=== PATIENT | female | born 1960 | race Caucasian/White ===

== ENCOUNTER → 2016-12-27 | Emergency (ER) | payer MEDICAID ==
[~2016-12-27] VITALS: Ht 167.6 cm; Wt 170.0 kg
[~2016-12-27] MED LIST: ASPI1TAB30 PO; CIPR500T4 PO; CIPROFLOXACIN 400MG/D5W 200 ML IVPB ONE; DICLOFENAC SODIUM 37.5 MG/ML VIAL IV STA; HYDR-906 PO; HYDROmorphONE 1 MG/ML SYG IV STA; IBUP800T25 PO; ONDANSETRON 4 MG INJ IV STA; SOD CHLORIDE 0.9% 1,000 ML IV STA; morphine 4 MG/ML VIAL IV STA
[2016-12-27 12:58] VITALS: Ht 167.6 cm; Wt 170.0 kg
[2016-12-27 15:01] LABS: ADD SCAN DIFF NO
[2016-12-27 15:13] LABS: INR 0.95; PROTIME 12.7 Sec (12.2-14.2)
[2016-12-27 15:15] LABS: BASOPHIL # 0.1 10^3/ul (0.0-0.1); BASOPHILS % 0.4 % (0.0-2.0); EOSINOPHILS % 0.3 % (0.0-7.0); HEMATOCRIT 42.8 % (37.0-47.0); HEMOGLOBIN 13.7 g/dl (12.0-16.0); LYMPHOCYTES # 1.7 10^3/ul (0.8-2.9); LYMPHOCYTES % 13.7 % (15.0-51.0); MEAN CORPUSCULAR HEMOGLOBIN 28.9 pg (29.0-33.0); MEAN CORPUSCULAR VOLUME 90.3 fl (82.0-101.0); MEAN PLATELET VOLUME 9.8 fl (7.4-10.4); MONOCYTE # 0.7 10^3/ul (0.3-0.9); MONOCYTES % 5.6 % (0.0-11.0); NEUTROPHIL # 9.7 10^3/ul (1.6-7.5); NEUTROPHILS % 79.8 % (39.0-77.0); PLATELET COUNT 291 10^3/UL (140-415); RED BLOOD COUNT 4.74 10^6/ul (4.20-5.40); RED CELL DISTRIBUTION WIDTH 12.6 % (11.5-14.5); WHITE BLOOD COUNT 12.1 10^3/ul (4.8-10.8)
[2016-12-27 15:55] LABS: ALBUMIN 4.1 g/dl (3.3-4.9); CHLORIDE 105 mmol/L (97-110); POTASSIUM 4.1 mmol/L (3.5-5.1); SODIUM 142 mmol/L (135-144)
[2016-12-27 15:58] LABS: ALANINE AMINOTRANSFERASE 24 IU/L (13-69); ALBUMIN/GLOBULIN RATIO 1.24; ALKALINE PHOSPHATASE 84 IU/L (42-121); ANION GAP 17 (8-16); ASPARTATE AMINO TRANSFERASE 19 IU/L (15-46); BILIRUBIN,INDIRECT 0.1 mg/dl (0-1.1); BILIRUBIN,TOTAL 0.1 mg/dl (0.2-1.3); BLOOD UREA NITROGEN 18 mg/dl (7-20); CARBON DIOXIDE 24 mmol/L (21-31); CREATININE 0.66 mg/dl (0.44-1.00); GLUCOSE 111 mg/dl (70-220); TOTAL PROTEIN 7.4 g/dl (6.1-8.1)
[2016-12-27 15:59] LABS: CALCIUM 9.4 mg/dl (8.4-10.2)
--- NOTE | 2016-12-27 16:31 | RADRPT ---
PROCEDURE: CT Abdomen and Pelvis without contrast. CLINICAL INDICATION: Right flank pain TECHNIQUE: CT scan of the abdomen and pelvis without contrast was performed on a multidetector hig h-resolution CT scanner. The patient was scanned without intravenous contrast. Coronal and sagittal reformatted images were obtained from the axial source images. Images were reviewed on a high-resol [employer] PACS workstation. The total exam CTDI equals 14.19 mGy and the total exam DLP equals 841.43 mG y-cm. One or more of the following dose reduction techniques were used: Automated exposure control. Adjustment of the mA and/or kV according to patient size. Use of iterative reconstruction technique. COMPARISON: None FINDINGS: CT abdomen: The lung bases are remarkable for posterior dependent atelectasis. The heart size is normal, withou t pericardial thickening or effusion. The liver is normal in size and density without focal mass or intrahepatic biliary dilatation. The spleen is normal in size and homogeneous in density. The sto mach is partially collapsed, but is grossly unremarkable. The pancreas as visualized is normal. Th e gallbladder is remarkable for multiple sub centimeter calcified gallstones. There is no evidence f or biliary dilatation. The adrenal glands are symmetric and normal. There is mild right hydroureteronephrosis related to 5 mm obstructing stone in the ureterovesical ju nction. There are multiple additional small nonobstructing stones measures up to 5 mm in bilateral k idneys left greater than right. There is mild cortical atrophy and parenchymal distortion in the lo wer pole left kidney. There is no left hydronephrosis. The aorta is of normal caliber. There is no retroperitoneal lymphadenopathy. The arminda hepatis samantha on is clear. The bowel and mesentery, as visualized, are equally unremarkable. There is a small hia franklin hernia. There is atrophy of the left lateral and posterior abdominal wall musculature. CT pelvis: The small bowel loops situated within the pelvis are unremarkable. The pelvic organs are normal. T he pelvic sidewalls and inguinal regions are clear. The sigmoid colon and rectum are unremarkable. No mass, lymphadenopathy, or free fluid is seen. No acute inflammation is seen. No osteolytic or o steoblastic lesion is detected. IMPRESSION: 1. Mild right hydroureteronephrosis related to 5 mm obstructing stone in the ureterovesical junctio n. Additional small nonobstructing stones in bilateral kidneys. Mild cortical atrophy and parenchy mal distortion involving the lower pole of the left kidney. Atrophy of the left lateral and posterio r abdominal wall musculature. Correlate with surgical history. 2. Cholelithiasis without evidence of acute cholecystitis. 3. Small hiatal hernia. RPTAT: BB .Bri Thakkar MD, Date Time Electronically viewed and signed by .Bri Thakkar MD, on 12/27/2016 16:30 .O/
[2016-12-27 16:37] LABS: AMYLASE 109 U/L (11-123)
[2016-12-27 17:11] LABS: TROPONIN-I < 0.010 ng/ml (0.00-0.12)
[2016-12-27 17:59] VITALS: TEMP 98.8
--- NOTE | 2016-12-27 18:34 | ERD ---
ER Documentation Chief Complaint Date/Time DATE: 12/27/16 TIME: 18:33 Chief Complaint BROUGHT IN VIA EMS DUE TO RLQ AP FOR 5 DAYS, COUGH PRESENT HPI This is a 56-year-old female with no past medical history that presents the emergency department complaining of right flank pain for the past 5 days that has now radiated to the right lower quadrant just prior to arrival. The patient indicated that when the pain first started it was 3 out of 10 in intensity. The pain is been persistent and progressive 10 out of 10 intensity today. The patient denies any frequency urgency or dysuria no gross hematuria. The patient had 3 episodes of nonbloody nonbilious emesis just prior to arrival. She denies any fevers shaking or chills. She denies any shortness of breath at rest or exertion. She denies a headache or neck pain. She denies any chest pain or pressure that radiates to the neck arm back or jaw she states she has never had any similar symptoms in the past. The patient had an appendectomy as a child ROS All systems reviewed and are negative except as per history of present illness. Medications Home Meds Active Scripts Ciprofloxacin Hcl* (Ciprofloxacin Hcl*) 500 Mg Tablet, 500 MG PO BID, #14 TAB Prov:SUNITHA VALENCIA 12/27/16 Ibuprofen* (Ibuprofen*) 800 Mg Tablet, 800 MG PO Q8 Y for PAIN LEVEL 6-10, #20 TAB Prov:SUNITHA VALENCIA 12/27/16 Hydrocodone/Acetaminophen ([place]al[place] 5-325 Tablet) 1 Each Tablet, 1 TAB PO Q6H Y for PAIN, #20 TAB Prov:SUNITHA VALENCIA 12/27/16 Reported Medications Ibuprofen* (Ibuprofen*) 800 Mg Tab, 800 MG PO Q6H Y for PAIN, TAB 12/27/16 Aspirin/Acetaminophen/Caffeine (Excedrin Migraine Caplet) 1 Each Tablet, 2 TAB PO DAILY Y for PRN, TAB 12/27/16 Allergies Allergies: Coded Allergies: No Known Allergy (Unverified , 12/27/16) PMhx/Soc Medical and Surgical Hx: Unable to obtain Hx Alcohol Use: Yes Hx Substance Use: No Hx Tobacco Use: No Smoking Status: Never smoker Physical Exam Vitals Vital Signs Date Time Temp Pulse Resp B/P Pulse Ox O2 Delivery O2 Flow Rate FiO2 12/27/16 18:37 88 14 102/64 94 Room Air 12/27/16 17:59 98.8 95 18 123/76 97 12/27/16 16:14 98.8 89 18 148/78 97 12/27/16 12:58 98.8 113 18 229/108 97 Physical Exam Constitutional:Well-developed. Well-nourished. Appear to be in a significant amount of discomfort secondary to pain HEENT:Normocephalic. Atraumatic.Pupils were equal round reactive to light. Moist mucous membranes.No tonsillar exudates. Neck: No nuchal rigidity. No lymphadenopathy. No posterior cervical spine tenderness or step-offs. Respiratory: Not using accessory muscles of respiration.Lungs were clear to auscultation bilaterally. No rhonchi. No rales. No wheezing. Cardiovascular: Regular rate regular rhythm.No murmurs. No rubs were appreciated.S1, S2 normal. Distal pulses are palpable 2+ bilaterally. GI: Abdomen was soft. Right CVA tenderness with minimal tenderness in the right lower quadrant. Non Distended. No pulsatile abdominal masses or bruits. No rebound. No guarding. Bowel sounds were present and normal. Muscle skeletal: Full range of motion of both the upper and lower extremities bilaterally.Normal muscle tone.No assymetrical calf tenderness or swelling. Skin: No petechia, no purpura. No lesions on the palms or the soles of the feet. No maculopapular rash. NEURO: Patient was alert, awake, orientated x3.No facial droop. Gait observed and normal with no ataxia.Speech had regular rate and rhythm. No focal neurological deficits. Result Diagram: 12/27/16 1445 12/27/16 1445 Results 24 hrs Laboratory Tests Test 12/27/16 14:45 Activated Partial Thromboplast Time 29.0Sec Alanine Aminotransferase (ALT/SGPT) 24IU/L Albumin 4.1g/dl Albumin/Globulin Ratio 1.24 Alkaline Phosphatase 84IU/L Amylase Level 109U/L Anion Gap 17 Aspartate Amino Transf (AST/SGOT) 19IU/L Basophils # 0.110^3/ul Basophils % 0.4% Blood Urea Nitrogen 18mg/dl Calcium Level 9.4mg/dl Carbon Dioxide Level 24mmol/L Chloride Level 105mmol/L Creatinine 0.66mg/dl Direct Bilirubin 0.00mg/dl Eosinophils # 0.010^3/ul Eosinophils % 0.3% Globulin 3.30g/dl Glucose Level 111mg/dl Hematocrit 42.8% Hemoglobin 13.7g/dl INR International Normalized Ratio 0.95 Indirect Bilirubin 0.1mg/dl Lipase 119U/L Lymphocytes # 1.710^3/ul Lymphocytes % 13.7% Mean Corpuscular Hemoglobin 28.9pg Mean Corpuscular Hemoglobin Concent 32.0g/dl Mean Corpuscular Volume 90.3fl Mean Platelet Volume 9.8fl Monocytes # 0.710^3/ul Monocytes % 5.6% Neutrophils # 9.710^3/ul Neutrophils % 79.8% Nucleated Red Blood Cells # 0.010^3/ul Nucleated Red Blood Cells % 0.0/100WBC Platelet Count 44174^3/UL Potassium Level 4.1mmol/L Prothrombin Time 12.7Sec Prothrombin Time Ratio 1.0 Red Blood Count 4.7410^6/ul Red Cell Distribution Width 12.6% Sodium Level 142mmol/L Total Bilirubin 0.1mg/dl Total Protein 7.4g/dl Troponin I < 0.010ng/ml White Blood Count 12.110^3/ul Current Medications Medications (Trade) Dose Ordered Sig/Bella Route PRN Reason Start Time Stop Time Status Last Admin Dose Admin Sodium Chloride (NS) 1,000 ml @ 1,000 mls/hr Q1H STAT IV 12/27/16 14:37 12/27/16 15:36 DC 12/27/16 14:49 Morphine Sulfate (morphine) 4 mg ONCE STAT IV 12/27/16 14:37 12/27/16 14:39 DC 12/27/16 14:49 Ondansetron HCl (Zofran Inj) 4 mg ONCE STAT IV 12/27/16 14:37 12/27/16 14:39 DC 12/27/16 14:49 Diclofenac Sodium 37.5 mg 37.5 mg ONCE STAT IV 12/27/16 17:31 12/27/16 17:34 DC 12/27/16 17:46 Sodium Chloride 1,000 ml @ 1,000 mls/hr Q1H STAT IV 12/27/16 17:31 12/27/16 18:30 DC 12/27/16 17:46 Ciprofloxacin/ Dextrose (Cipro Ivpb) 200 ml @ 200 mls/hr ONCE ONCE IVPB 12/27/16 18:00 12/27/16 18:59 DC 12/27/16 18:09 Hydromorphone HCl (Dilaudid) 1 mg ONCE STAT IV 12/27/16 17:34 12/27/16 17:36 DC 12/27/16 17:46 Ondansetron HCl (Zofran Inj) 4 mg ONCE STAT IV 12/27/16 17:34 12/27/16 17:36 DC 12/27/16 17:46 Procedures/MDM This patient presented to the emergency department with abdominal pain and was seen and evaluated by myself. My differential diagnosis included but was not limited to abdominal aortic aneurysm, appendicitis, pancreatitis, perforated peptic ulcer, perforated viscus, Boerhaaves syndrome or visceral pain such as diverticulitis, DKA, esophagitis, hepatitis or bowel obstruction. The patient was placed on a satellite project site monitor, continuous pulse oximetry, and IV access was established by nursing staff. The patient received intravenous morphine Zofran and I will check. CT scan of the abdomen had been ordered and reviewed by myself and indicated the followin. Mild right hydroureteronephrosis related to 5 mm obstructing stone in the ureterovesical junction. Additional small nonobstructing stones in bilateral kidneys. Mild cortical atrophy and parenchymal distortion involving the lower pole of the left kidney. Atrophy of the left lateral and posterior abdominal wall musculature. Correlate with surgical history. 2. Cholelithiasis without evidence of acute cholecystitis. 3. Small hiatal hernia. 12 Lead EKG tracing ordered and reviewed by myself showed: Normal sinus rhythm of 87 bpm and no arrhythmia. TX interval normal. QRS duration normal. No ST segment elevation No ST segment depression. No changes consistent with acute ischemia. Observation Note: Time: 4 hours Family Hx: No Hypertension Evaluation: Multiple exams showed improving symptoms and no evidence of obstructive uropathy at this time. Her BUN and creatinine were normal. The patient was able to tolerate oral intake as well as make urine. The patient states she would prefer to be discharged home with analgesic medication will follow up on an outpatient basis with the customer support advisor. She was sent home with morphine and Nalcrest and given prophylactic antibiotics which included ciprofloxacin. She also received a dose of IV ciprofloxacin in the emergency department. Departure Diagnosis: Primary Impression: Kidney stone Condition: Fair Patient Instructions: Kidney Stone W/ Colic ERIK,SUNITHA Dec 27, 2016 18:34
[2016-12-27 18:37] VITALS: BP 102/64; PULSE 88; RESP 14
== END | disposition home or self-care (01) ==
LOC: E/R 12:55
DX: N20.0 Calculus of kidney (principal); R11.10 Vomiting, unspecified; Z79.82 Long term (current) use of aspirin
CPT/HCPCS: 36415; 74176; 80053; 82150; 83690; 84484; 85025; 85610; 85730; 96374; 96375; 96376; J0744; J1170; J2270; J2405; J7030; Z7502; Z7610; 93005

== ENCOUNTER 2016-12-31 00:16 | Emergency (ER) | payer MEDICAID ==
[~2016-12-31] VITALS: Ht 162.6 cm; Wt 79.5 kg
[~2016-12-31 00:16] MED LIST changes: -CIPROFLOXACIN 400MG/D5W 200 ML IVPB ONE; -DICLOFENAC SODIUM 37.5 MG/ML VIAL IV STA; -HYDROmorphONE 1 MG/ML SYG IV STA; -ONDANSETRON 4 MG INJ IV STA; -SOD CHLORIDE 0.9% 1,000 ML IV STA; -morphine 4 MG/ML VIAL IV STA
[2016-12-31 00:18] VITALS: Ht 162.6 cm; Wt 79.5 kg
[2016-12-31] MEDS ORDERED: SOD CHLORIDE 0.9% 1,000 ML IV STA (00:50)
[2016-12-31] MEDS ORDERED: ONDANSETRON 4 MG INJ IV STA (00:50)
[2016-12-31] MEDS ORDERED: morphine 4 MG/ML VIAL IV STA (00:50)
[2016-12-31 01:35] LABS: ADD SCAN DIFF NO
[2016-12-31 01:44] LABS: BASOPHILS % 0.3 % (0.0-2.0); EOSINOPHILS # 0.1 10^3/ul (0.0-0.5); EOSINOPHILS % 1.2 % (0.0-7.0); HEMATOCRIT 41.4 % (37.0-47.0); LYMPHOCYTES # 2.8 10^3/ul (0.8-2.9); LYMPHOCYTES % 28.8 % (15.0-51.0); MEAN CORPUSCULAR HEMOGLOBIN 29.9 pg (29.0-33.0); MEAN CORPUSCULAR HGB CONC 33.8 g/dl (32.0-37.0); MEAN CORPUSCULAR VOLUME 88.3 fl (82.0-101.0); MEAN PLATELET VOLUME 9.3 fl (7.4-10.4); MONOCYTE # 0.8 10^3/ul (0.3-0.9); MONOCYTES % 8.1 % (0.0-11.0); NEUTROPHIL # 5.9 10^3/ul (1.6-7.5); NEUTROPHILS % 61.2 % (39.0-77.0); PLATELET COUNT 295 10^3/UL (140-415); RED BLOOD COUNT 4.69 10^6/ul (4.20-5.40); RED CELL DISTRIBUTION WIDTH 12.6 % (11.5-14.5); WHITE BLOOD COUNT 9.7 10^3/ul (4.8-10.8)
[2016-12-31 01:46] LABS: ALBUMIN 4.3 g/dl (3.3-4.9)
[2016-12-31 01:47] LABS: POTASSIUM 3.9 mmol/L (3.5-5.1)
[2016-12-31 01:49] LABS: ALBUMIN/GLOBULIN RATIO 1.26; BILIRUBIN,INDIRECT 0.1 mg/dl (0-1.1); BILIRUBIN,TOTAL 0.1 mg/dl (0.2-1.3); CALCIUM 9.5 mg/dl (8.4-10.2); CREATININE 1.11 mg/dl (0.44-1.00); TOTAL PROTEIN 7.7 g/dl (6.1-8.1)
[2016-12-31] MEDS ORDERED: HYDROmorphONE 1 MG/ML SYG IV STA (02:41)
[2016-12-31] MEDS ORDERED: KETOROLAC 30 MG INJ IV STA (02:41)
--- NOTE | 2016-12-31 03:19 | RADRPT ---
PROCEDURE: CT of the abdomen and pelvis without contrast CLINICAL INDICATION: Abdominal Pain. TECHNIQUE: Spiral CT images through the abdomen and pelvis without the use of contrast. The admin istered radiation dose is CTDI 15.14 and DLP 891.14. One or more of the following dose reduction te chniques were used: automated exposure control, adjustment of the mA and/or kV according to patient size, or use of iterative reconstruction technique. COMPARISON: 12/27/2016 FINDINGS: Lack of oral and intravenous contrast somewhat limits evaluation. Slight dependent atelectasis of the lung bases is seen. No pleural effusion is seen. Calcification of the mitral annulus is seen. Moderate hiatal hernia is seen, larger than on the recent prior study. The gallbladder is again not ed to be distended with multiple stones and also probable sludge. No intra or extrahepatic ductal d ilatation is seen. No radiopaque stones are seen in the ducts. There is mild dilatation of the marcus creatic duct within the uncinate process, unchanged. The spleen and adrenals are unremarkable appea radames. Truncated pancreatic tail is unchanged. Tiny calyceal stone in the right lower pole is more medial in location than on the prior study. Moderately severe right hydronephrosis and hydroureter is again seen and the 5 mm right UVJ stone is again seen. The right UVJ is somewhat more medial th an typically seen. No stones are seen within the urinary bladder or left ureter. Multiple small no nobstructing left renal stones are again seen. Stable mild left hydronephrosis. The appendix is no t definitely identified. No definite pericecal inflammatory process. There is no evidence for diverticulitis. . Small fat-containing right inguinal hernia. The uterus and adnexal regions are u nremarkable in appearance. No adenopathy or ascites is seen. There is mild degenerative change of the spine. IMPRESSION: 5 mm right UVJ stone with associated right hydronephrosis and hydroureter again seen. Small nonobst ructing bilateral renal stones and mild left hydronephrosis, also stable. Multiple gallstones again seen. Mild prominence of pancreatic duct within the uncinate process, unc hanged, but otherwise no evidence for ductal dilatation. Hiatal hernia. The appendix is not definitely identified. Small fat-containing right inguinal gary ia. RPTAT: HLBE Jennifer Carrasco, Physician Date Time Electronically viewed and signed by Jennifer Carrasco, Physician on 12/31/2016 03:19 LE/
--- NOTE | 2016-12-31 05:05 | ERD ---
ER Documentation Chief Complaint Date/Time DATE: 12/31/16 TIME: 05:04 Chief Complaint right flank pain x 2 hours. hx of kidney stone HPI This is a very pleasant 56-year-old female comes in right flank pain for 2 hours. Patient has history of kidney stone. She was diagnosed few days ago. She is able to urinate. Pain is mild to moderate intensity. Radiates to groin. No other current complaints. Mild nausea. No vomiting. ROS All systems reviewed and are negative except as per history of present illness. Medications Home Meds Active Scripts Ciprofloxacin Hcl* (Ciprofloxacin Hcl*) 500 Mg Tablet, 500 MG PO BID, #14 TAB Prov:SUNITHA VALENCIA 12/27/16 Ibuprofen* (Ibuprofen*) 800 Mg Tablet, 800 MG PO Q8 Y for PAIN LEVEL 6-10, #20 TAB Prov:SUNITHA VALENCIA 12/27/16 Hydrocodone/Acetaminophen ([place] 5-325 Tablet) 1 Each Tablet, 1 TAB PO Q6H Y for PAIN, #20 TAB Prov:SUNITHA VALENCIA 12/27/16 Reported Medications Ibuprofen* (Ibuprofen*) 800 Mg Tab, 800 MG PO Q6H Y for PAIN, TAB 12/27/16 Aspirin/Acetaminophen/Caffeine (Excedrin Migraine Caplet) 1 Each Tablet, 2 TAB PO DAILY Y for PRN, TAB 12/27/16 Allergies Allergies: Coded Allergies: No Known Allergy (Unverified , 12/27/16) PMhx/Soc History of Surgery: Yes (kidney sx, appendectomy) Anesthesia Reaction: No Hx Neurological Disorder: No Hx Respiratory Disorders: No Hx Cardiac Disorders: No Hx Psychiatric Problems: No Hx Miscellaneous Medical Probl: Yes (kidney stones) Hx Alcohol Use: Yes (occasionally) Hx Substance Use: No Hx Tobacco Use: No Smoking Status: Never smoker Physical Exam Vitals Vital Signs Date Time Temp Pulse Resp B/P Pulse Ox O2 Delivery O2 Flow Rate FiO2 12/31/16 04:36 108 22 112/78 99 Nasal Cannula 4.0 12/31/16 01:48 98.3 88 32 111/76 100 12/31/16 00:18 98.9 102 20 167/97 98 Physical Exam Const: [] Head: Atraumatic Eyes: Normal Conjunctiva ENT: Normal External Ears, Nose and Mouth. Neck: Full range of motion..~ No meningismus. Resp: Clear to auscultation bilaterally Cardio: Regular rate and rhythm, no murmurs Abd: Soft, non tender, non distended. Normal bowel sounds Skin: No petechiae or rashes Back: No midline or flank tenderness Ext: No cyanosis, or edema Neur: Awake and alert Psych: Normal Mood and Affect Result Diagram: 12/31/1612612/31/167 Results 24 hrs Laboratory Tests Test 12/31/16 01:27 Alanine Aminotransferase (ALT/SGPT) 26IU/L Albumin 4.3g/dl Albumin/Globulin Ratio 1.26 Alkaline Phosphatase 77IU/L Anion Gap 17 Aspartate Amino Transf (AST/SGOT) 20IU/L Basophils # 0.010^3/ul Basophils % 0.3% Blood Urea Nitrogen 23mg/dl Calcium Level 9.5mg/dl Carbon Dioxide Level 24mmol/L Chloride Level 106mmol/L Creatinine 1.11mg/dl Direct Bilirubin 0.00mg/dl Eosinophils # 0.110^3/ul Eosinophils % 1.2% Globulin 3.40g/dl Glucose Level 121mg/dl Hematocrit 41.4% Hemoglobin 14.0g/dl Indirect Bilirubin 0.1mg/dl Lipase 129U/L Lymphocytes # 2.810^3/ul Lymphocytes % 28.8% Mean Corpuscular Hemoglobin 29.9pg Mean Corpuscular Hemoglobin Concent 33.8g/dl Mean Corpuscular Volume 88.3fl Mean Platelet Volume 9.3fl Monocytes # 0.810^3/ul Monocytes % 8.1% Neutrophils # 5.910^3/ul Neutrophils % 61.2% Nucleated Red Blood Cells # 0.010^3/ul Nucleated Red Blood Cells % 0.0/100WBC Platelet Count 88159^3/UL Potassium Level 3.9mmol/L Red Blood Count 4.6910^6/ul Red Cell Distribution Width 12.6% Sodium Level 143mmol/L Total Bilirubin 0.1mg/dl Total Protein 7.7g/dl White Blood Count 9.710^3/ul Current Medications Medications (Trade) Dose Ordered Sig/Bella Route PRN Reason Start Time Stop Time Status Last Admin Dose Admin Sodium Chloride (NS) 1,000 ml @ 1,000 mls/hr Q1H STAT IV 12/31/16 00:50 12/31/16 01:49 DC 12/31/16 01:39 Morphine Sulfate (morphine) 4 mg ONCE STAT IV 12/31/16 00:50 12/31/16 00:51 DC 12/31/16 01:48 Ondansetron HCl (Zofran Inj) 4 mg ONCE STAT IV 12/31/16 00:50 12/31/16 00:51 DC 12/31/16 01:48 Hydromorphone HCl (Dilaudid) 1 mg ONCE STAT IV 12/31/16 02:41 12/31/16 02:45 DC 12/31/16 02:55 Ketorolac Tromethamine (Toradol) 30 mg ONCE STAT IV 12/31/16 02:41 12/31/16 02:45 DC 12/31/16 02:54 Procedures/MDM CBC: [no e/o of systemic infection or severe anemia] CMP: [no e/o severe acidosis, alkalosis, renal failure, diabetic ketoacidosis, liver disease] Lipase: [no e/o pancreatitis] PT/INR: [normal coagulation] Urine: [no e/o acute infection or hematuria] Medical decision-making: Patient comes in with renal colic. At this point pain is resolved. He is tolerating p.o. She will be discharged home. Return to 8 hours for serial abdominal exams. Departure Diagnosis: Primary Impression: Kidney stone Condition: Stable BENTON TESFAYE Dec 31, 2016 05:05
[2016-12-31] MEDS ORDERED: NAPR-260 PO (05:07)
[2016-12-31] MEDS ORDERED: TAMS-14 PO (05:07)
[2016-12-31] MEDS ORDERED: HYDR-902 PO (05:07)
[2016-12-31 05:39] VITALS: BP 117/68; PULSE 80; RESP 16; TEMP 98.6
== END 2016-12-31 05:42 | disposition home or self-care (01) ==
LOC: E/R 00:16
DX: N20.0 Calculus of kidney (principal); R40.2252 Coma scale, best verbal response, oriented, at arrival to emergency department; R11.0 Nausea; R40.2142 Coma scale, eyes open, spontaneous, at arrival to emergency department; R40.2362 Coma scale, best motor response, obeys commands, at arrival to emergency department; Z79.82 Long term (current) use of aspirin
CPT/HCPCS: 36415; 74176; 80053; 83690; 85025; 96374; 96375; J1170; J1885; J2270; J2405; J7030; Z7502

== ENCOUNTER 2017-04-28 21:28 | Emergency (ER) | END 2017-04-29 00:45 | disposition home or self-care (01) | DX: R10.9 Unspecified abdominal pain (principal); N20.0 Calculus of kidney | CPT/HCPCS: 36415; 76775; 80053; 81001; 83690; 85025; 96374; 96375; J2270; J2405; J7030; Z7502 ==

== ENCOUNTER 2019-06-28 15:02 | Emergency (ER) | payer SELFPAY ==
[~2019-06-28] VITALS: Ht 154.9 cm; Wt 83.9 kg
[~2019-06-28 15:02] MED LIST changes: -ASPI1TAB30 PO; +ASPI1TAB31 PO; +HYDR-3980 PO; +HYDR-4011 PO; -HYDR-906 PO; +IBUP-1544 PO; +IBUP-1545 PO; -IBUP800T25 PO; +NAPR-985 PO; +TAMS-14 PO
[2019-06-28 15:24] VITALS: Ht 154.9 cm; Wt 83.9 kg
[2019-06-28] MEDS ORDERED: ONDANSETRON 4 MG INJ IV STA (17:09)
[2019-06-28] MEDS ORDERED: HYDROmorphONE 1 MG/ML SYG IV STA (17:09)
[2019-06-28] MEDS ORDERED: CEFTRIAXONE 1 GM/50 ML (PMX) 50 ML IVPB ONE (18:00)
[2019-06-28 18:38] VITALS: BP 112/73; PULSE 83; RESP 13
== END 2019-06-28 19:00 | disposition home or self-care (01) ==
LOC: E/R 15:02
DX: N20.0 Calculus of kidney (principal); N30.01 Acute cystitis with hematuria; Z79.82 Long term (current) use of aspirin
CPT/HCPCS: 36415; 74176; 80048; 81001; 85025; 87086; 96374; 96375; 99285; J0696; J1170; J2405